=== PATIENT | female | born 1975 | race Caucasian/White ===

== ENCOUNTER 2021-01-13 17:24 | Emergency (ER) | payer OTHER ==
[2021-01-13 18:32] LABS: HEMOGLOBIN 15.8 gm/dl (12.3-15.3); RED BLOOD COUNT 5.24 M/UL (4.00-5.10); WHITE BLOOD COUNT 12.8 K/UL (4.5-11.0)
[2021-01-13 18:58] LABS: BUN/CREATININE RATIO 23 (0-10)
[2021-03-21] MEDS ORDERED: VITAMIN D21250 MCG PO (13:31)
[2021-03-21] MEDS ORDERED: PREDNISONE 10 M10 MG PO (13:32)
[2021-03-21] MEDS ORDERED: BUSPIRONE HCL5 MG PO (13:33)
[2021-03-21] MEDS ORDERED: TENORMIN 50 MG50 MG PO (13:33)
[2021-03-21] MEDS ORDERED: PAXIL10 MG PO (13:34)
[2021-03-21] MEDS ORDERED: CELEBREX 200MG200 MG PO (13:34)
== END 2021-01-13 18:29 | disposition left against medical advice (07) ==
LOC: ER1 17:24
PROVIDERS: Family Medicine
DX: S01.81XA Laceration without foreign body of other part of head, initial encounter (principal); M54.5 Low back pain; G89.29 Other chronic pain; I10 Essential (primary) hypertension; V49.50XA Passenger injured in collision with unspecified motor vehicles in traffic accident, initial encounter; Y92.410 Unspecified street and highway as the place of occurrence of the external cause
CPT/HCPCS: 80053; 82550; 82553; 83874; 84484; 85025; 99284; Q9967

== ENCOUNTER → 2021-03-20 | Outpatient (CLI) | payer OTHER ==
[~2021-03-20] MED LIST: BUSPIRONE HCL5 MG PO; CELEBREX 200MG200 MG PO; PAXIL10 MG PO; PREDNISONE 10 M10 MG PO; TENORMIN 50 MG50 MG PO; VITAMIN D21250 MCG PO
== END ==
LOC: KOH-I 12:08
DX: S82.851A Displaced trimalleolar fracture of right lower leg, initial encounter for closed fracture (principal); X58.XXXA Exposure to other specified factors, initial encounter
CPT/HCPCS: 73700

== ENCOUNTER → 2021-03-22 | Day surgery (SDC) | payer OTHER ==
[~2021-03-22] VITALS: Ht 162.6 cm; Wt 83.9 kg
== END | disposition home or self-care (01) ==
LOC: OR 06:17
DX: S82.871A Displaced pilon fracture of right tibia, initial encounter for closed fracture (principal); M25.471 Effusion, right ankle; W19.XXXA Unspecified fall, initial encounter; I10 Essential (primary) hypertension; F41.1 Generalized anxiety disorder; F32.9 Major depressive disorder, single episode, unspecified; Z88.0 Allergy status to penicillin; Z20.822 Contact with and (suspected) exposure to COVID-19; J44.9 Chronic obstructive pulmonary disease, unspecified; F17.210 Nicotine dependence, cigarettes, uncomplicated; Z96.642 Presence of left artificial hip joint
CPT/HCPCS: 73610; 76000; C1713; J0171; J1100; J1170; J1885; J2001; J2250; J2405; J2704; J2795; J3010; J3370; J7030; J7120; Q4133

== ENCOUNTER → 2021-03-30 | Outpatient (CLI) | payer OTHER | LOC: KOH-I 12:45 | DX: S82.871D Displaced pilon fracture of right tibia, subsequent encounter for closed fracture with routine healing (principal) | CPT/HCPCS: 73610; 93971 ==

== ENCOUNTER → 2021-04-13 | Outpatient (CLI) | payer OTHER | LOC: KOH-I 13:47 | DX: S82.871D Displaced pilon fracture of right tibia, subsequent encounter for closed fracture with routine healing (principal) | CPT/HCPCS: 73610 ==

== ENCOUNTER → 2021-05-22 | Outpatient (CLI) | payer OTHER | LOC: KOH-I 11:23 | DX: S82.871A Displaced pilon fracture of right tibia, initial encounter for closed fracture (principal) | CPT/HCPCS: 73610 ==